=== PATIENT | female | born 1960 | race Hispanic/Latino ===

== ENCOUNTER 2016-12-27 14:55 | Inpatient (IN) | payer OTHER ==
--- NOTE | 2016-12-27 15:21 | Emergency Department Report ---
Chief Complaint: Neuro Symptoms/Deficit Stated Complaint: DROOPING RT SIDE OF FACE Time Seen by Provider: 12/27/16 15:16 - HPI History of Present Illness: 26-year-old female past medical history of hyponatremia hypertension comes in with concern of right eye drooping and mouth drooping that started last night. She reports the headache. She also discloses she had right ear pain or sensation. She did discuss this issue with her primary care provider he referred to the emergency room. - Exam Vital Signs: Vital Signs 12/27/16 15:07 Pulse Rate 130 H Respiratory 20 Rate Blood Pressure 120/98 O2 Sat by Pulse 100 Oximetry Physical Exam: Patient's alert and oriented 3. MSE screening note: Focused history and physical exam performed. Due to findings the following was ordered: Patient's been evaluated with this provider fast track stroke protocol order. Patient be evaluated Main ER ED Medical Decision Making - Lab Data Result diagrams: 12/27/16 15:29 ED Disposition for MSE Condition: Stable
[2016-12-27 15:47] LABS: Basophils % (Auto) 0.8 % (0.0-1.8); Eosinophils % (Auto) 3.3 % (0.0-4.3); Hemoglobin 15.6 gm/dl (10.1-14.3); Mean Corpuscular HGB Conc 33 % (30-34); Mean Corpuscular Hemoglobin 31 pg (28-32); Mean Corpuscular Volume 94 fl (79-97); Platelet Count 374 K/mm3 (140-440); Red Blood Count 4.99 M/mm3 (3.65-5.03); Red Cell Distribution Width 12.5 % (13.2-15.2); White Blood Count 8.8 K/mm3 (4.5-11.0)
[2016-12-27 15:58] LABS: INR 0.88 (0.87-1.13)
[2016-12-27 15:59] LABS: Partial Thromboplastin Time 30.6 Sec. (24.2-36.6)
[2016-12-27 16:08] LABS: Creatine Kinase MB 1.4 ng/mL (0.0-4.0)
[2016-12-27 16:11] LABS: Anion Gap 18 mmol/L; Blood Urea Nitrogen 7 mg/dL (7-17); Calcium 9.5 mg/dL (8.4-10.2); Carbon Dioxide 21 mmol/L (22-30); Chloride 92.8 mmol/L (98-107); Creatine Kinase 21 units/L (30-135); Glucose 153 mg/dL (65-100); Potassium 3.7 mmol/L (3.6-5.0); Sodium 128 mmol/L (137-145)
--- NOTE | 2016-12-28 00:16 | Emergency Department Report ---
ED General Adult HPI - General Chief complaint: Neuro Symptoms/Deficit Stated complaint: DROOPING RT SIDE OF FACE Time Seen by Provider: 12/27/16 15:16 Source: patient, RN notes reviewed Mode of arrival: Ambulatory Limitations: No Limitations - History of Present Illness Initial comments: this is a 56 y/o female, she is previously unknown to me Her primary care doctor is Dr. Dodge. She has a past medical history of hypertension and asthma. She presents to the ER with resultant right-sided facial droop resolved right-sided eyelid drooping. Symptoms started yesterday. They are essentially painless. There is no change in taste. There is no pain in the ear. Patient indicated mild headache in triage, but to me she denies headache. Symptoms have no exacerbating or relieving factors. Otherwise has no chest pain, shortness of breath, abdominal pain, denies dysphonia, denies ataxia, denies changes in gait. -: Sudden Location: head, face, eyes Severity scale (0 -10): 0 Consistency: now resolved Improves with: none Worsens with: none Associated Symptoms: denies other symptoms - Related Data Allergies Allergy/AdvReac Type Severity Reaction Status Date / Time No Known Allergies Allergy Verified 12/28/16 02:24 ED Review of Systems ROS: Stated complaint: DROOPING RT SIDE OF FACE Other details as noted in HPI Constitutional: denies: fever Eyes: denies: eye discharge, vision change ENT: denies: epistaxis Respiratory: denies: cough Cardiovascular: denies: chest pain Gastrointestinal: denies: abdominal pain Genitourinary: denies: dysuria Musculoskeletal: denies: back pain Skin: denies: lesions Neurological: headache Psychiatric: anxiety ED Past Medical Hx - Past Medical History Hx Hypertension: Yes Additional medical history: Low Na, - Surgical History Additional Surgical History: Ankle surgery - Social History Smoking Status: Current Every Day Smoker Substance Use Type: Alcohol ED Physical Exam - General Limitations: No Limitations General appearance: alert, in no apparent distress - Head Head exam: Present: atraumatic, normocephalic - Eye Eye exam: Present: normal appearance, PERRL, EOMI, other (differential acuity intact to finger counting, color perception, rating at a close distance. No obvious visual field cuts are noted.). Absent: nystagmus - ENT ENT exam: Present: normal exam, normal orophraynx, mucous membranes moist - Neck Neck exam: Present: normal inspection, full ROM. Absent: tenderness, meningismus - Respiratory Respiratory exam: Present: normal lung sounds bilaterally. Absent: respiratory distress, wheezes, rales, rhonchi, stridor, decreased breath sounds - Cardiovascular Cardiovascular Exam: Present: regular rate, normal rhythm, normal heart sounds. Absent: bradycardia, tachycardia, irregular rhythm, systolic murmur, diastolic murmur, rubs, gallop - GI/Abdominal GI/Abdominal exam: Present: soft, normal bowel sounds. Absent: distended, tenderness, guarding, rebound, rigid, pulsatile mass - Extremities Exam Extremities exam: Present: normal inspection, full ROM, normal capillary refill. Absent: tenderness, pedal edema, joint swelling, calf tenderness - Back Exam Back exam: Present: normal inspection, full ROM. Absent: tenderness, CVA tenderness (R), CVA tenderness (L), muscle spasm, paraspinal tenderness, vertebral tenderness - Neurological Exam Neurological exam: Present: alert, oriented X3, normal gait (there is no pass pointing. There is normal [id number]. Negative pronator drift. Normal gait. Normal tandem gait.), other (Extraocular movements intact. Tongue midline. No facial droop. Facial sensation intact to light touch in the V1, V2 , V3 distribution bilaterally. 5 and 5 strength in 4 extremities.. Sensation is intact to light touch in 4 extremities.). Absent: motor sensory deficit - Psychiatric Psychiatric exam: Present: normal affect, normal mood - Skin Skin exam: Present: warm, dry, intact, normal color, other (no evidence of vesicles on the head, face, mouth, or ears.). Absent: rash, vesicles ED Course Vital Signs 12/27/16 12/28/16 12/28/16 15:07 00:11 02:00 Temperature 98.7 F Pulse Rate 130 H 84 82 Respiratory 20 12 14 Rate Blood Pressure 120/98 Blood Pressure 147/79 108/64 [Left] O2 Sat by Pulse 100 100 98 Oximetry - Reevaluation(s) Reevaluation #1: 12/28/16 01:02 Differential diagnosis: Transient ischemic attack, Tierney's palsy Assessment and plan: 56-year-old female with resolved facial droop, and eyelid drooping. She currently has a GCS of 15, with an NIH score of 0. Her is in the room, and agrees of the patient's symptoms appear to be improved. Given aforementioned findings, not a TPA candidate. Laboratory studies are unremarkable, noncontrast CT scan of the brain is pending. Given that there is no discernible forehead weakness, she does not have other symptoms including change in taste, there are no vesicles, and her cranial nerve exam is otherwise unremarkable, I think Tierney's palsy is very unlikely. Patient will be admitted for evaluation of atypical presentation of transient ischemic attack one CT scan has resulted. This plan of care was discussed with the patient and family who verbalized understanding. Reevaluation #2: 12/28/16 03:[address] scan of the brain is negative. Aspirin is ordered. Hospital physician, Dr. Jackson, accepts patient to her service for transient ischemic attack evaluation. ED Medical Decision Making - Lab Data Result diagrams: 12/27/16 15:29 12/27/16 15:29 Vital Signs 12/27/16 12/28/16 15:07 00:11 Temperature 98.7 F Pulse Rate 130 H 84 Respiratory 20 12 Rate Blood Pressure 120/98 Blood Pressure 147/79 [Left] O2 Sat by Pulse 100 100 Oximetry Lab Results 12/27/16 12/27/16 12/27/16 Range/Units 15:29 15:29 15:29 WBC 8.8 (4.5-11.0) K/mm3 RBC 4.99 (3.65-5.03) M/mm3 Hgb 15.6 H (10.1-14.3) gm/dl Hct 47.0 H (30.3-42.9) % MCV 94 (79-97) fl MCH 31 (28-32) pg MCHC 33 (30-34) % RDW 12.5 L (13.2-15.2) % Plt Count 374 (140-440) K/mm3 Lymph % (Auto) 32.6 (13.4-35.0) % Dewey % (Auto) 6.1 (0.0-7.3) % Eos % (Auto) 3.3 (0.0-4.3) % Baso % (Auto) 0.8 (0.0-1.8) % Lymph # 2.9 (1.2-5.4) K/mm3 Dewey # 0.5 (0.0-0.8) K/mm3 Eos # 0.3 (0.0-0.4) K/mm3 Baso # 0.1 (0.0-0.1) K/mm3 Seg Neutrophils % 57.2 (40.0-70.0) % Seg Neutrophils # 5.1 (1.8-7.7) K/mm3 PT 11.8 L (12.2-14.9) Sec. INR 0.88 (0.87-1.13) APTT 30.6 (24.2-36.6) Sec. Thrombin Time 15.4 (15.1-19.6) Sec. Sodium 128 L (137-145) mmol/L Potassium 3.7 (3.6-5.0) mmol/L Chloride 92.8 L (98-107) mmol/L Carbon Dioxide 21 L (22-30) mmol/L Anion Gap 18 mmol/L BUN 7 (7-17) mg/dL Creatinine 0.5 L (0.7-1.2) mg/dL Estimated GFR > 60 ml/min BUN/Creatinine Ratio 14.00 % Glucose 153 H (65-100) mg/dL Calcium 9.5 (8.4-10.2) mg/dL Total Creatine Kinase 21 L (30-135) units/L CK-MB (CK-2) 1.4 (0.0-4.0) ng/mL CK-MB (CK-2) Rel Index 6.6 H (0-4) Troponin T < 0.010 (0.00-0.029) ng/mL - EKG Data When compared to previous EKG there are: previous EKG unavailable 12/28/16 01:04 Sinus tachycardia, 105 bpm, normal axis, prolonged QTC at 452 ms, nonspecific ST and T wave abnormality, not morphologically consistent with STEMI. - Radiology Data Radiology results: pending Critical care attestation.: If time is entered above; I have spent that time in minutes in the direct care of this critically ill patient, excluding procedure time. ED Disposition Clinical Impression: TIA (transient ischemic attack) Disposition: OP ADMITTED IP TO THIS HOSP Is pt being admited?: Yes Does the pt Need Aspirin: Yes Condition: Stable
--- NOTE | 2016-12-28 02:15 | Cat Scan Report ---
FINAL REPORT EXAM: CT HEAD/BRAIN WO CON HISTORY: resolved facial droop rt side COMPARISON: None available. TECHNIQUE: Axial images obtained skull base through vertex. FINDINGS: No acute intracranial hemorrhage, midline shift or pathologic extra axial fluid collection. Ventricles and cisterns are normal in size and configuration for the patient's age. Barrett-white differentiation preserved. Calvarium grossly intact. Mild to moderate mucosal thickening of the ethmoid air cells. Small amount of fluid within the right mastoid air cells. Left mastoid air cells are clear. IMPRESSION: No grossly acute intracranial abnormality. No evidence of acute transcortical infarct or intracranial hemorrhage by CT at this time. If clinical concern for acute intracranial process remains, MRI would be suggested for further evaluation.
[2016-12-28] MEDS ORDERED: MILK OF MAGNESIA PO PRN (02:17)
[2016-12-28] MEDS ORDERED: DULCOLAX PR PRN (02:17)
[2016-12-28] MEDS ORDERED: SODIUM CHLORIDE FLUSH SYRINGE 10 ML IV PRN (02:17)
[2016-12-28] MEDS ORDERED: ZOFRAN IV PRN (02:17)
[2016-12-28] MEDS ORDERED: TYLENOL PO PRN (02:17)
[2016-12-28] MEDS ORDERED: APRESOLINE IV PRN (02:17)
--- NOTE | 2016-12-28 02:24 | History and Physical Report ---
History of Present Illness Date of examination: 12/28/16 History of present illness: 56-year-old woman with a history of hypertension, chronic hyponatremia comes to the emergency room with complaints of right facial droop which lasted for 9 hours Patient denies chest pain, palpitation, shortness of breath, cough, abdominal pain, hematochezia, dysuria, frequency, focal weakness, dysarthria, fever chills , polydipsia polyuria, hot or cold intolerance, easy bruisability, or rash or bleeding from mucosal membrane, rhinorrhea, epistaxis, earache, tinnitus, blurry vision, eye discharge, anxiety, depression. Other review of systems negative PAST SURGICAL HISTORY: Ankle surgery SOCIAL HISTORY: Smoke 15 cigarettes a day, drinks 3 glasses of wine 5 times a week, no drugs FAMILY HISTORY: Hypertension Medications and Allergies Allergies Allergy/AdvReac Type Severity Reaction Status Date / Time No Known Allergies Allergy Unverified 12/27/16 15:07 Exam - Physical Exam Narrative exam: Gen. appearance: Patient lying in bed, no apparent distress HEENT: Normocephalic, atraumatic, pupils equally round and reactive to light, extraocular movement intact, and no sclericterus,. No JVD or thyromegaly or nodule,neck supple, no carotid bruit ,mucous membranes moist, no exudate or erythema Heart: S1, S2, regular rate and rhythm Lungs: Clear to auscultation bilaterally, breathing comfortable Abdomen: Positive bowel sounds, nontender, nondistended, no organomegaly Extremity: No edema, cyanosis, clubbing Skin: No rash, nodules, warm, dry Neuro: Oriented 3, cranial nerves II-12 intact, speech is fluent, motor and sensory intact - Constitutional Vitals: Temp Pulse Resp BP Pulse Ox 98.7 F 84 12 147/79 100 12/28/16 00:11 12/28/16 00:11 12/28/16 00:11 12/28/16 00:11 12/28/16 00:11 Results - Labs CBC & Chem 7: 12/27/16 15:29 12/27/16 15:29 Labs: Abnormal lab results 12/27/16 12/27/16 12/27/16 Range/Units 15:29 15:29 15:29 Hgb 15.6 H (10.1-14.3) gm/dl Hct 47.0 H (30.3-42.9) % RDW 12.5 L (13.2-15.2) % PT 11.8 L (12.2-14.9) Sec. Sodium 128 L (137-145) mmol/L Chloride 92.8 L (98-107) mmol/L Carbon Dioxide 21 L (22-30) mmol/L Creatinine 0.5 L (0.7-1.2) mg/dL Glucose 153 H (65-100) mg/dL Total Creatine Kinase 21 L (30-135) units/L CK-MB (CK-2) Rel Index 6.6 H (0-4) - Imaging and Cardiology EKG: image reviewed CT Scan - head: report reviewed Assessment and Plan TIA Hypertension Chronic hyponatremia Admits medicine Obtain MRI, Echo, carotid Doppler Do neurochecks, swallow screen IV hydralazine as needed for blood pressure control Consult neurology, start aspirin, statin, DVT prophylaxis
[2016-12-28] MEDS ORDERED: ASPIRIN PO ONE (03:02)
[2016-12-28] MEDS ORDERED: ASPIRIN ONE (03:33)
--- NOTE | 2016-12-28 07:31 | Admit Criteria Form ---
Admission Criteria Documentation: TRANSIENT ISCHEMIC ATTACK (TIA) Clinical Indications for Admission to Inpatient Care (Place 'X' for any and all applicable criteria): Admission is indicated for ANY ONE of the following(1)(2)(3)(4)(5): [ ]I. Immediate inpatient procedure is needed (eg, endarterectomy). [X ]II. Inpatient admission required rather than observation care (Also use Transient Ischemic Attack (TIA): Observation Care Criteria as appropriate) because of ANY ONE of the following: [X ]a) Focal neurologic signs or symptoms persist or recurring [ ]b) Cardiac arrhythmias of immediate concern [ ]c) Clinically significant cardiac disorder identified that requires inpatient care (eg, severe valvular disease, atrial myxoma, cardiomyopathy) [ ]d) Hypertension requiring inpatient treatment [ ]e) Parenteral anticoagulation required (eg, alternative forms of anticoagulation not appropriate or not feasible) as indicated by ALL of the following(13): [ ]i) Temporary subtherapeutic anticoagulation unacceptable because of high risk of short-term venous or arterial thromboembolism due to ANY ONE of the following(14)(15)(16): [ ]1) Atrial fibrillation suspected as etiology of TIA(17)(18)(19)(20)(21) [ ]2) Venous thromboembolism within past 12 months [ ]3) Underlying malignancy [ ]4) Patient with mechanical cardiac valve(22)( 23) [ ]5) Underlying hypercoagulable state (eg, protein C or protein S deficiency antithrombin deficiency, antiphospholipid antibodies) [ ]6) Patient at temporary high risk of thromboembolism (eg, status post orthopedic surgery) [ ]ii) Contraindications to outpatient use of "bridging" agent or alternative oral anticoagulant[B] as indicated by ALL of the following: [ ]1) Contraindication to outpatient use of low- molecular-weight heparin as "bridging" agent as indicated by ANY ONE of the following(15): [ ]A. Documented current or history of heparin-induced thrombocytopenia(24) [ ]B. Severe thrombocytopenia (eg, platelet count less than 50,000/mm3 (64k202/L) [ ]C. Documented allergy to heparin, low- molecular-weight heparin, or pork products [ ]D. Renal failure (creatinine clearance less than 30 mL/min/1.73m2 (0.50mL/sec/1.73m2) or on dialysis) [ ]E. Inability to manage self-injection ( eg, by patient, caregiver, or visiting nurse) [ ]2) Contraindication to outpatient use of fondaparinux as "bridging" agent as indicated by ANY ONE of the following(25)(26 )(27)(28): [ ]A. Severe thrombocytopenia (eg, platelet count less than 50,000/mm3 (50 x109/L)) [ ]B.Hypersensitivity to fondaparinux, related drugs, or product components [ ]C.Renal failure (creatinine clearance less than 30 mL/min/1.73m2 (0.50mL/sec/1.73m2) or on dialysis) [ ]D.Inability to manage self-injection ( eg, by patient, caregiver, or visiting nurse [ ]3. Oral direct thrombin inhibitor (eg, dabigatran) or oral coagulation factor Xa inhibitor (eg, rivaroxaban, apixaban) not appropriate as oral anticoagulation (eg, indication not appropriate) or contraindicated (eg, hypersensitivity, creatinine clearance less than 15 mL/min/1.73m2 ( 0.25 mL/sec/1.73m2) or on dialysis). [ ]f) Continuous IV infusion of anticoagulant, platelet inhibitor, vasoactive or antiarrhythmia(18)(19) [ ]g) Other condition, treatment, or monitoring requiring inpatient admission [ ]III. Contraindications and/or Inappropriate clinical situations for Observational Care in patients with Transient Ischemic Attack (TIA), when ANY ONE of the following is required: [ ]a) Patient with persistent or severe neurological deficit 24 [ ]b) Patient with acute CVA or other identified pathology should be admitted to inpatient for further care 25 [ ]IV. General contraindications and/or Inappropriate clinical situations for Observational Care in patients with Transient Ischemic Attack (TIA), when ANY ONE of the following is required: [ ]a) Prediction of prolongation of LOS based on ANY ONE of the following may be considered as a contraindication for observational care 2, 3, 4, 5, 6, 7, 8, 9, 10, 11 [ ]i) Age > 65 yrs. [ ]ii) Patient arriving by ambulance [ ]iii) Patient with high acuity [ ]iv) Patient requiring vital sign monitoring [ ]v) Patient on IV medication [ ]b) Systolic blood pressures 180mmHg 3,12 [ ]c) Patient with altered mental status including delirium and other alteration of consciousness, (3) [ ]d) Patient whose discharge disposition will be to a assisted home or rehabilitation home should not be managed in Emergency Department Observation Unit. CMS rule requires 3 days hospital stay before such placement.3,13 [ ]e) Patient with failure to thrive due to broad array of etiologies 3,16,17 [ ]f) Inability to ambulate 3,14 Extended stay beyond goal length of stay may be needed for(4)(30)(32): [ ]a) Parenteral anticoagulation required [ ]b) Dangerous arrhythmia [ ]c) Cardiac valvular disorder, atrial myxoma, cardiomyopathy [ ]d) Uncontrolled severe hypertension [ ]e) Severe carotid stenosis [ ]f) Active comorbidities (eg, heart failure) [ ]g) Extracranial vertebrobasilar disease(29) [ ]h) Clinical evolution of TIA into cerebrovascular accident (stroke) The original [email or web address] content created by [email or web address] has been revised. The portions of thecontent which have been revised are identified through the use of italic text or in bold, and [facility] has neither reviewed nor approved the modified material. All other unmodified content is copyright [facility]. Please see references footnoted in the original [facility] edition 2016 Admission Criteria Met: Yes
--- NOTE | 2016-12-28 09:26 | Magnetic Resonance Report ---
MRI OF THE BRAIN WITHOUT CONTRAST: HISTORY: CVA PROCEDURE: Multiplanar, multisequence MR imaging of the brain without IV contrast was performed. FINDINGS: The brain parenchyma signal intensity and its sutton white interface are within normal limits on all sequences. No evidence for acute ischemia, hemorrhage or mass. No chronic infarct or extra-axial fluid collection. The midline structures are central. The basal cisterns are patent. Normal ventricular size. The orbital cavities and sella turcica demonstrate no abnormality. The visualized paranasal sinuses and mastoid air cells are well aerated. IMPRESSION: Unremarkable non-enhanced MRI of the brain.
[2016-12-28] MEDS ORDERED: LOVENOX SUB-Q SCH (10:00)
[2016-12-28] MEDS: ASPIRIN PO SCH (12:00)
[2016-12-28] MEDS: LOVENOX SUB-Q SCH (15:19)
[2016-12-28] MEDS ORDERED: ZOCOR PO SCH (22:00)
[2016-12-29 06:39] LABS: Basophils % (Auto) 0.7 % (0.0-1.8); Eosinophils % (Auto) 6.6 % (0.0-4.3); Hemoglobin 13.1 gm/dl (10.1-14.3); Mean Corpuscular HGB Conc 33 % (30-34); Mean Corpuscular Hemoglobin 31 pg (28-32); Mean Corpuscular Volume 95 fl (79-97); Platelet Count 295 K/mm3 (140-440); Red Blood Count 4.21 M/mm3 (3.65-5.03); Red Cell Distribution Width 12.6 % (13.2-15.2); White Blood Count 7.7 K/mm3 (4.5-11.0)
[2016-12-29 07:17] LABS: Alanine Aminotransferase 17 units/L (7-56); Albumin 3.5 g/dL (3.9-5); Albumin/Globulin Ratio 1.3 %; Alkaline Phosphatase 67 units/L (35-129); Anion Gap 20 mmol/L; BUN/Creatinine Ratio 18.33; Bilirubin,Total 0.3 mg/dL (0.1-1.2); Blood Urea Nitrogen 11 mg/dL (7-17); Calcium 8.9 mg/dL (8.4-10.2); Carbon Dioxide 22 mmol/L (22-30); Glucose 103 mg/dL (65-100); Potassium 4.5 mmol/L (3.6-5.0); Sodium 140 mmol/L (137-145); Total Protein 6.3 g/dL (6.3-8.2)
[2016-12-29 07:57] LABS: Cholesterol 164 mg/dL (50-199); HDL Cholesterol 53 mg/dL (40-59); LDL Cholesterol,Direct 98 mg/dL (50-130); Triglycerides 68 mg/dL (2-149)
[2016-12-29 09:21] VITALS: BP 123/70
[2016-12-29] MEDS: ASPIRIN PO SCH (09:33)
[2016-12-29] MEDS: LOVENOX SUB-Q SCH (09:34)
[2016-12-29] MEDS ORDERED: PNEUMOVAX 23 IM ONE (12:00)
--- NOTE | 2016-12-29 15:41 | Discharge Summary ---
Providers - Providers Date of Admission: 12/28/16 02:17 Date of discharge: 12/29/16 Attending physician: UMA CHAVEZ none Primary care physician: ADÁN DE LA O Hospitalization Reason for admission: TIA Condition: Stable Pertinent studies: CT scan of the brain was unremarkable MRI of the brain was negative for any acute stroke Echocardiogram of the heart showed an ejection fraction of 50-55% with no intramural thrombus Procedures: none Hospital course: Patient is a 55-year-old female who was a history of hypertension, chronic hyponatremia, chronic long-time smoker presented to the emergency department on 12/28/2016 with right facial droop. Patient denies any dysphagia. No slurred speech. There was no lateralizing weakness. CT scan of the brain at emergency department was unremarkable for any acute event. MRI of the brain showed no ischemic process. Echocardiogram of the heart shows no intramural thrombus. Ejection fraction was 50-55%. Patient stated that she still notes disease slight droop on the right corner of the mouth with no slow speech. No lateralizing weakness. On admission, patient was commenced on aspirin and atorvastatin and Lovenox. Had no dysphagia. Strength is equal in both upper and lower extremities. Patient is therefore being discharged this point to follow with primary care physician in 2-3 days for further evaluation and monitoring. The patient to follow-up with neurology if symptoms persist Slight hyperglycemia noticed. A1c was 5.6%. Hyponatremia was corrected. Patient is therefore discharged to follow primary care physician we will continue to monitor symptoms and refer to follow up with a Neurologist if symptoms persist. Disposition: DISCHARGED TO HOME OR SELFCARE Core Measure Documentation - Palliative Care Palliative Care/ Comfort Measures: Not Applicable - Core Measures Any of the following diagnoses?: none Exam - Constitutional Vitals: Temp Pulse Resp BP Pulse Ox 97.9 F 83 18 123/70 97 12/29/16 09:21 12/29/16 10:00 12/29/16 09:21 12/29/16 09:21 12/29/16 09:21 General appearance: Present: no acute distress, well-nourished - EENT Eyes: Present: PERRL - Neck Neck: Present: supple, normal ROM - Respiratory Respiratory effort: normal Respiratory: bilateral: CTA - Cardiovascular Heart Sounds: Present: S1 & S2. Absent: rub, click - Extremities Extremities: pulses symmetrical, No edema Peripheral Pulses: within normal limits - Abdominal General gastrointestinal: Present: soft, non-tender, non-distended, normal bowel sounds Female genitourinary: Present: normal - Integumentary Integumentary: Present: clear, warm, dry - Musculoskeletal Musculoskeletal: gait normal, strength equal bilaterally - Psychiatric Psychiatric: appropriate mood/affect, intact judgment & insight - Neurologic Neurologic: CNII-XII intact, moves all extremities, other Plan Activity: no driving until cleared by PCP, fall precautions Weight Bearing Status: Partial Weight Bearing Diet: low cholesterol, low salt, low carbohydrate Durable Medical Equipment Needed Upon Discharge: Crutches, CPM Follow up with: ADÁN DE LA O MD [Primary Care Provider] - 3-5 Days Prescriptions: amLODIPine [Norvasc] 10 mg PO DAILY #30 tablet Aspirin [Aspirin TAB] 325 mg PO QDAY #30 tablet AtorvaSTATin [Lipitor] 40 mg PO HS #30 tablet Losartan [Cozaar] 50 mg PO QDAY #30 tablet
== END 2016-12-29 18:00 | disposition home or self-care (01) | DRG 69 ==
LOC: ED 14:55 → 4A 12-28 02:17
PROVIDERS: ADMIT Internal Medicine; ATTEND Family Medicine
DX: G45.9 Transient cerebral ischemic attack, unspecified (principal); E87.1 Hypo-osmolality and hyponatremia; I10 Essential (primary) hypertension; J45.909 Unspecified asthma, uncomplicated; F17.210 Nicotine dependence, cigarettes, uncomplicated; Z82.49 Family history of ischemic heart disease and other diseases of the circulatory system
CPT/HCPCS: 36415; 70450; 70551; 80048; 80053; 80061; 82550; 82553; 83036; 84484; 85025; 85610; 85670; 85730; 90732; 93005; 93010; 93306; 93880; 96372; 99406; J1650